=== PATIENT | female | born 1940 | race American Indian/Alaskan Native ===

== ENCOUNTER 2017-01-26 10:38 | Outpatient (CLI) | payer OTHER ==
--- NOTE | 2017-01-26 15:08 | XRay Report ---
Lumbar spine series: Low back pain. There is collapse of the L3-4 interspace with grade 2 anterior L3 subluxation and severe sclerosis of the articulating surfaces. Subchondral cysts are also noted. The apophyseal joints at all levels appear aligned including L3-4 however they're severely narrowed at L3-4. The vertebral height is well maintained at all levels. The overall bony mineralization is generally diminished. No prior study for comparison. Impressions: L3-4 subluxation with associated disc collapse and severe degenerative and sclerotic changes. No acute findings suspected.
--- NOTE | 2017-01-26 15:18 | Mammography Report ---
BILATERAL DIGITAL SCREENING MAMMOGRAM with CAD: 01/26/17 10:38:00 CLINICAL: Routine screening. COMPARISON:06/20/14 and 05/01/13 FINDINGS: The breasts are almost entirely fatty. No mass, architectural distortion or suspicious calcifications. IMPRESSION: No mammographic evidence of malignancy. BI-RADS CATEGORY: 1 - - Negative RECOMMENDATION: Routine mammographic screening in one year. COMMENT: Patient follow-up letters are generated by our [employer] application.
== END 2017-01-26 10:39 | disposition home or self-care (01) ==
LOC: SPVWC 10:38
PROVIDERS: ATTEND Nurse Practitioner
DX: Z12.31 Encounter for screening mammogram for malignant neoplasm of breast (principal); M48.56XA Collapsed vertebra, not elsewhere classified, lumbar region, initial encounter for fracture; M47.896 Other spondylosis, lumbar region
CPT/HCPCS: 72100; G0202; 77067

== ENCOUNTER 2018-12-14 13:13 | Outpatient (CLI) | payer MEDICARE, OTHER ==
--- NOTE | 2018-12-14 15:15 | Mammography Report ---
DIGITAL SCREENING MAMMOGRAM WITH CAD, 12/14/2018 INDICATION: Routine screening mammography. TECHNIQUE: Digital bilateral 2D mammography was obtained in the craniocaudal and mediolateral obliq ue projections. This examination was interpreted with the benefit of Computer-Aided Detection analysi s. COMPARISON: 06/20/2014 FINDINGS: Breast Density: The breasts are almost entirely fatty. There is no evidence of dominant mass, suspicious calcifications or architectural distortion in eithe r breast. Stable mild bilateral nodularity. IMPRESSION: No evidence of malignancy. BI-RADS Category 2: Benign. No mammographic evidence of malignancy. Recommend routine screening ma mmography in one year. A "normal" or negative report should not discourage follow up or biopsy of a clinically significant f inding. A written summary of these findings will be mailed to the patient. The patient will be entered into a mammography reporting system which will generate a reminder letter for the patient's next appointmen t at the appropriate interval. The [employer] recommends yearly mammograms starting at age 40 and continuing as l gypsy as a woman is in good health. Breast MRI is recommended for women with an approximate 20-25% or greater lifetime risk of breast cancer, including women with a strong family history of breast or ova donovan cancer or who have been treated for Hodgkin's disease. Signer Name: Sona Herrera MD Signed: 12/14/2018 3:11 PM Workstation Name: [id number]
--- NOTE | 2018-12-14 15:18 | Mammography Report ---
DEXA BONE DENSITY SCAN INDICATION: Postmenopausal.. COMPARISON: Prior DEXA scan, 06/20/2014 LUMBAR SPINE (L1-L4): Bone mineral density (BMD) is 0.735 g/cm2. T-score is -3.6 (standard deviations of Young Adult mean). Z-score is -0.9 (standard deviations of Age Matched mean). LEFT FEMORAL NECK: Bone mineral density (BMD) is 0.621 g/cm2. T-score is -2.3 (standard deviations of Young Adult mean). Z-score is -0.7 (standard deviations of Age Matched mean). IMPRESSION: 1. WHO Classification: Osteoporosis.Fracture Risk: Increased. 2. Compared with the prior study of 06/20/2014 there has been a 0.7% increase in the BMD of the left f emoral neck, and a 6.2% increase in the BMD of the lumbar spine. Signer Name: Sona Herrera MD Signed: 12/14/2018 3:14 PM Workstation Name: [id number]
== END 2018-12-14 13:14 | disposition home or self-care (01) ==
LOC: SPVWC 13:13
PROVIDERS: ATTEND Nurse Practitioner
DX: Z12.31 Encounter for screening mammogram for malignant neoplasm of breast (principal); Z78.0 Asymptomatic menopausal state
CPT/HCPCS: 77067; 77080